=== PATIENT | female | born 1945 | race Caucasian/White ===

== ENCOUNTER 2017-12-28 07:41 | Day surgery (SDC) | payer MEDICARE, BC ==
[~2017-12-28] VITALS: Ht 167.6 cm; Wt 62.8 kg
[~2017-12-28 07:41] MED LIST: B Complete1 EACH PO; Calcium Magnes1 EACH PO; Flonase 0.05% N16 GM; INSUASPI SC; INSULANPEN SC; LOSHYD PO; LOSHYD100 PO; MULVITMIND PO; POTCHL20ER PO; Percocet 10-321 EACH PO; SNAP INSULIN P1 EACH; TIMO.5OPSO BOTHEYES; VITAMIN D31000 UNIT PO; Vitamin C1000 M1 PO; ZYRTEC10 M1 PO; Zofran Odt4 MG SL
== END 2017-12-28 10:31 | disposition home or self-care (01) ==
LOC: ORSCSDS 07:41
PROVIDERS: Internal Medicine Gastroenterology
PROC: 0DB58ZX Excision of Esophagus, Via Natural or Artificial Opening Endoscopic, Diagnostic (ICD-10-PCS; principal; 2017-12-28 09:00)
PROC: 0DBH8ZX Excision of Cecum, Via Natural or Artificial Opening Endoscopic, Diagnostic (ICD-10-PCS; principal; 2017-12-28 09:00)
DX: R74.8 Abnormal levels of other serum enzymes (principal); D12.0 Benign neoplasm of cecum; K44.9 Diaphragmatic hernia without obstruction or gangrene; K29.60 Other gastritis without bleeding; Z12.11 Encounter for screening for malignant neoplasm of colon; K57.30 Diverticulosis of large intestine without perforation or abscess without bleeding; Z86.010 Personal history of colon polyps; I10 Essential (primary) hypertension; E11.9 Type 2 diabetes mellitus without complications; E78.5 Hyperlipidemia, unspecified; H40.9 Unspecified glaucoma; Z87.891 Personal history of nicotine dependence; Z79.899 Other long term (current) drug therapy
CPT/HCPCS: 82947; 87081; 88305; J0330; J1980; J2405; J7120

== ENCOUNTER → 2018-05-25 | Outpatient (CLI) | payer MEDICARE, BC | END | disposition home or self-care (01) | LOC: PLD 08:16 → LAB SHORT 08:16 | DX: D36.17 Benign neoplasm of peripheral nerves and autonomic nervous system of trunk, unspecified (principal) | CPT/HCPCS: 88305 ==

== ENCOUNTER → 2019-10-31 | Outpatient (CLI) | payer MEDICARE, BC ==
[~2019-10-31] MED LIST changes: +AMLODIPINE-OLM1 EAC2; +LOSA50
[2019-10-31 17:40] LABS: Alanine Aminotransfer (ALT/SGP 29 U/L (12-78); Albumin, Blood 3.4 g/dL (3.4-5.0); Albumin/Globulin Ratio 0.9 (0.8-1.8); Alk Phos 141 U/L (50-136); Anion Gap 4 mmol/L (6-16); Aspartate Aminotrans (AST/SGOT 36 U/L (12-37); Bilirubin, Total 0.4 mg/dL (0.1-1.0); Blood Urea Nitrogen 15 mg/dL (8-24); Bun/Creatinine Ratio 21.6 (12.0-20.0); CO2, Blood 31 mmol/L (21-32); Calcium, Blood 8.6 mg/dL (8.5-10.1); Chloride, Blood 104 mmol/L (98-108); Globulin, Blood 3.7 g/dL (2.2-4.0); Glomerular Filtration Rate >60 (60-); Glucose, Blood 203 mg/dL (70-99); Potassium, Blood 3.5 mmol/L (3.5-5.5); Sodium, Blood 139 mmol/L (136-145); Total Protein, Blood 7.1 g/dL (6.4-8.2)
== END | disposition home or self-care (01) ==
LOC: LAB SHORT 13:17 → OLS 13:17
PROVIDERS: Internal Medicine Endocrinology, Diabetes & Metabolism
DX: E10.8 Type 1 diabetes mellitus with unspecified complications (principal)
CPT/HCPCS: 36415; 80053; 83036

== ENCOUNTER 2019-12-21 07:46 | Day surgery (SDC) | payer MEDICARE, BC ==
[~2019-12-21] VITALS: Ht 167.6 cm; Wt 140.6 kg
[~2019-12-21 07:46] MED LIST changes: -AMLODIPINE-OLM1 EAC2; -LOSA50
[2019-12-21] MEDS ORDERED: LOSA50 (08:15)
[2019-12-21] MEDS ORDERED: AMLODIPINE-OLM1 EAC2 (08:15)
== END 2019-12-21 09:30 | disposition home or self-care (01) ==
LOC: ORSCSDS 07:46
PROVIDERS: Internal Medicine Gastroenterology
PROC: 0DB48ZX Excision of Esophagogastric Junction, Via Natural or Artificial Opening Endoscopic, Diagnostic (ICD-10-PCS; principal; 2019-12-21 09:00)
DX: K74.69 Other cirrhosis of liver (principal); R74.8 Abnormal levels of other serum enzymes; K76.6 Portal hypertension; K31.89 Other diseases of stomach and duodenum; E78.5 Hyperlipidemia, unspecified; I10 Essential (primary) hypertension; Z96.41 Presence of insulin pump (external) (internal); E10.9 Type 1 diabetes mellitus without complications; Z87.891 Personal history of nicotine dependence; Z79.4 Long term (current) use of insulin; Z79.899 Other long term (current) drug therapy
CPT/HCPCS: 82947; 88305; J0330; J0461; J2405; J2704; J7120

== ENCOUNTER 2020-01-15 03:19 | Emergency (ER) | payer MEDICARE, BC ==
[~2020-01-15] VITALS: Ht 167.6 cm; Wt 63.5 kg
[~2020-01-15 03:19] MED LIST changes: +AMLODIPINE-OLM1 EAC2; +LOSA50
[2020-01-15] MEDS ORDERED: AMLO5 PO (04:44)
[2020-01-15] MEDS ORDERED: HYDROCHLOROTH12.5 MG PO (04:45)
[2020-01-15] MEDS ORDERED: LOSA50 PO (04:46)
== END 2020-01-15 07:14 | disposition home or self-care (01) ==
LOC: ER 03:19
DX: M25.512 Pain in left shoulder (principal); Z88.5 Allergy status to narcotic agent; Z88.8 Allergy status to other drugs, medicaments and biological substances; Z79.899 Other long term (current) drug therapy; Z79.4 Long term (current) use of insulin; E11.9 Type 2 diabetes mellitus without complications; I10 Essential (primary) hypertension

== ENCOUNTER 2022-08-27 09:56 | Day surgery (SDC) | payer MEDICARE, BC ==
[~2022-08-27] VITALS: Ht 167.6 cm; Wt 98.2 kg
[~2022-08-27 09:56] MED LIST changes: +AMLO5 PO; +Actonel150 MG PO; +ESOM20 PO; +HUMULIN R100 UNIT/2; +HYDCHL25 PO; +INSULANI SC; +KETO.5OPSO RIGHTEYE; +LOSA50 PO; +LOSARTAN-HCTZ1 EAC6 PO; +NOVOLOG100 UNIT/3; +PRAVASTATIN SOD10 MG PO; +ZESTRIL40 M1 PO
[2022-08-27] MEDS ORDERED: METO25ER (10:38)
--- NOTE | 2022-08-27 11:20 | NUR ---
08/27/22 1120 Anya Juarez TWO ATTEMPTS AT IV. FIRST ATTEMPT BY MA IN R FOREARM UNABLE TO ADVANCE. SECOND ATTEMPT IN R AC BY MIGUELINA SUCESSFUL.
== END 2022-08-27 12:05 | disposition home or self-care (01) ==
LOC: ORSCSDS 09:56
PROVIDERS: Internal Medicine Gastroenterology
PROC: 0DJ08ZZ Inspection of Upper Intestinal Tract, Via Natural or Artificial Opening Endoscopic (ICD-10-PCS; principal; 2022-08-27 11:15)
DX: K74.60 Unspecified cirrhosis of liver (principal); I85.10 Secondary esophageal varices without bleeding; Z79.899 Other long term (current) drug therapy; E11.9 Type 2 diabetes mellitus without complications; Z79.4 Long term (current) use of insulin
CPT/HCPCS: J2704; J7120

== ENCOUNTER → 2023-01-01 | Outpatient (CLI) | payer MEDICARE, BC ==
[~2023-01-01] MED LIST changes: +METO25ER
[2023-01-01 17:58] LABS: BASOPHILS ABSOLUTE AUTO 0.04 K/mm3 (0.00-0.23); BASOPHILS PERCENT AUTO 1 % (0-2); EOSINOPHILS ABSOLUTE AUTO 0.16 K/mm3 (0.00-0.68); EOSINOPHILS PERCENT AUTO 2 % (0-6); Hematocrit 36.5 % (33.0-51.0); Hemoglobin 12.5 g/dL (11.5-16.0); IMMATURE GRAN ABSOLUTE AUTO 0.02 K/mm3 (0.00-0.10); IMMATURE GRAN PERCENT AUTO 0 % (0-1); LYMPHOCYTES ABSOLUTE AUTO 1.18 K/mm3 (0.84-5.20); LYMPHOCYTES PERCENT AUTO 17 % (21-46); MONOCYTES ABSOLUTE AUTO 0.62 K/mm3 (0.16-1.47); MONOCYTES PERCENT AUTO 9 % (4-13); Mean Corpuscular HGB 31.1 pg (26.0-34.0); Mean Corpuscular HGB Conc 34.2 g/dL (31.5-36.5); Mean Corpuscular Volume 91 fL (80-100); Mean Platelet Volume 11.3 fL (9.1-12.4); NEUTROPHILS ABSOLUTE AUTO 4.94 K/mm3 (1.96-9.15); NEUTROPHILS PERCENT AUTO 71 % (41-73); Platelet Count 245 K/mm3 (150-400); RDW Coefficient Variation 11.9 % (11.7-14.2); RDW Standard Deviation 39.8 fL (35.1-46.3); Red Blood Cell Count 4.02 M/mm3 (3.80-5.20); White Blood Cell Count 6.96 K/mm3 (4.00-11.30)
[2023-01-01 18:20] LABS: Albumin, Blood 3.9 g/dL (3.4-5.0); Bilirubin, Total 0.4 mg/dL (0.1-1.0); Bun/Creatinine Ratio 20.2 (12.0-20.0); Calcium, Blood 9.8 mg/dL (8.5-10.1); Creatinine, Blood 1.24 mg/dL (0.40-1.00); Thyroid Stimulating Hormone 2.014 uIU/mL (0.360-4.800); Total Protein, Blood 7.9 g/dL (6.4-8.2)
[2023-01-01 18:24] LABS: Potassium, Blood 6.2 mmol/L (3.5-5.5)
== END | disposition home or self-care (01) ==
LOC: LAB SHORT 17:54 → LAB 17:54
PROVIDERS: Physician Assistant
DX: R53.83 Other fatigue (principal)
CPT/HCPCS: 80053; 84443; 85025

== ENCOUNTER → 2023-07-14 | Outpatient (CLI) | payer MEDICARE, BC ==
[2023-07-14 19:59] LABS: Albumin, Blood 3.6 g/dL (3.4-5.0); Albumin/Globulin Ratio 1.1 (0.8-1.8); Bilirubin, Total 0.4 mg/dL (0.1-1.0); Bun/Creatinine Ratio 21.4 (12.0-20.0); Calcium, Blood 8.9 mg/dL (8.5-10.1); Creatinine, Blood 0.75 mg/dL (0.40-1.00); Globulin, Blood 3.4 g/dL (2.2-4.0); Potassium, Blood 3.7 mmol/L (3.5-5.5)
== END ==
LOC: LAB 14:50 → LAB SHORT 14:50
PROVIDERS: Internal Medicine Endocrinology, Diabetes & Metabolism
DX: E10.8 Type 1 diabetes mellitus with unspecified complications (principal)
CPT/HCPCS: 80053; 83036